=== PATIENT | female | born 1960 | race Caucasian/White ===

== ENCOUNTER 2021-02-11 05:44 | Emergency (ER) | payer SELFPAY ==
[~2021-02-11] VITALS: Ht 149.9 cm; Wt 73.5 kg
[2021-02-11 05:48] VITALS: BP 178/92
[2021-02-11] MEDS ORDERED: LIDOCAINE MPF 1% 5 ML ONE (06:48)
[2021-02-11] MEDS ORDERED: cefTRIAXone 1,000 MG VIAL ONE (06:48)
[2021-02-11] MEDS: cefTRIAXone 1,000 MG in LIDOCAINE MPF 1% 2.1 ML IM ONE (07:18)
[2021-02-11] MEDS: LIDOCAINE MPF 1% 10 MG/ML VIAL INJ ONE ×2 (07:20→07:24)
[2021-02-11] MEDS ORDERED: CEPH500T PO (07:52)
[2021-02-11 08:15] VITALS: BP 156/70
== END 2021-02-11 08:15 | disposition home or self-care (01) ==
LOC: MED 05:44
DX: S81.811A Laceration without foreign body, right lower leg, initial encounter (principal); I10 Essential (primary) hypertension; W19.XXXA Unspecified fall, initial encounter; Y93.89 Activity, other specified; Y92.89 Other specified places as the place of occurrence of the external cause; Y99.8 Other external cause status
CPT/HCPCS: 12002; 90471; 90715; 96372; 99284; J0696; J2001

== ENCOUNTER 2021-02-21 17:35 | Emergency (ER) | payer MEDICAID ==
[~2021-02-21] VITALS: Ht 162.6 cm; Wt 78.5 kg
[~2021-02-21 17:35] MED LIST: CEPH500T PO
[2021-02-21 18:04] VITALS: BP 160/93
--- NOTE | 2021-02-21 18:10 | NUR ---
PT ambulated to bed 03.
[2021-02-21] MEDS ORDERED: BACITRACIN OINT 500 UNITS/GM PKT TP ONE ×2 (18:20→18:23)
[2021-02-21] MEDS ORDERED: BACI1PAC6 TP (18:23)
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
[2021-02-21 18:42] VITALS: BP 160/93
== END 2021-02-21 18:40 | disposition home or self-care (01) ==
LOC: MED 17:35
DX: S81.811D Laceration without foreign body, right lower leg, subsequent encounter (principal); I10 Essential (primary) hypertension; Z79.899 Other long term (current) drug therapy; X58.XXXD Exposure to other specified factors, subsequent encounter
CPT/HCPCS: 99282

== ENCOUNTER 2023-01-16 17:11 | Emergency (ER) | payer MEDICAID, OTHER ==
[~2023-01-16] VITALS: Ht 157.5 cm; Wt 80.7 kg
[~2023-01-16 17:11] MED LIST changes: +BACI-416 TP
[2023-01-16 17:27] VITALS: BP 150/94
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
[2023-01-16] MEDS ORDERED: HYDROcodone/APAP 5/325 MG 1 TAB TAB PO ONE (18:05)
[2023-01-16] MEDS ORDERED: HYDR-5080 PO (18:39)
[2023-01-16] MEDS ORDERED: HYDROcodone/APAP 5/325 MG 1 TAB TAB ONE (19:22)
[2023-01-16 19:40] VITALS: BP 128/89
--- NOTE | 2023-01-16 19:40 | NUR ---
Patient discharged with v/s stable. Written and verbal after care instructions given and explained. Patient alert, oriented and verbalized understanding of instructions. Ambulatory with steady gait. All questions addressed prior to discharge. ID band removed. Patient advised to follow up with PMD. Rx of NORCO, given. Patient educated on indication of medication including possible reaction and side effects. Opportunity to ask questions provided and answered.
== END 2023-01-16 19:40 | disposition home or self-care (01) ==
LOC: MED 17:11
DX: S52.592A Other fractures of lower end of left radius, initial encounter for closed fracture (principal); I10 Essential (primary) hypertension; E78.5 Hyperlipidemia, unspecified; Z79.899 Other long term (current) drug therapy; W01.0XXA Fall on same level from slipping, tripping and stumbling without subsequent striking against object, initial encounter; Y93.89 Activity, other specified; Y92.89 Other specified places as the place of occurrence of the external cause; Y99.8 Other external cause status
CPT/HCPCS: 29125; 73110; 99283; Q0092